=== PATIENT | female | born 2005 ===

== ENCOUNTER → 2024-06-04 | Outpatient (CLI) | payer OTHER ==
[2024-06-04 13:41] LABS: Candida Group, PCR NOT DETECTED (NOT DETECT); Candida glabrata-krusei, PCR NOT DETECTED (NOT DETECT)
[2024-06-04 13:56] LABS: Bacterial Vaginosis PCR Positive (NEGATIVE)
== END ==
LOC: LAB SHORT 08:40 → LAB 08:40
PROVIDERS: Physician Assistant
DX: R35.0 Frequency of micturition (principal)
CPT/HCPCS: 81515